=== PATIENT | male | born 1950 | race Caucasian/White ===

== ENCOUNTER 2017-01-24 13:50 | Inpatient (IN) ==
[2017-01-24] MEDS ORDERED: ASPIRIN 325 MG TABLET PO STA (14:12)
[2017-01-24] MEDS ORDERED: ASPIRIN 325 MG TABLET ONE (14:25)
[2017-01-24 14:52] LABS: INR 3.3
[2017-01-24 14:53] LABS: PT Patient Result 33.8 SECS; Partial Thromboplastin Time 41.5 SECS (0-40)
[2017-01-24 14:56] LABS: Calcium 8.4 MG/DL (8.5-10.1); Osmolality,Calculated 284.3 MOS/KG (273-304); Potassium 4.1 MMOL/L (3.5-5.1)
[2017-01-24 15:00] LABS: Troponin I Only 3.73 NG/ML (0.00-0.045)
[2017-01-24] MEDS ORDERED: ENOXAPARIN 120 MG/0.8 ML SYRINGE SUBCUT ONE (15:33)
[2017-01-24] MEDS ORDERED: ENOXAPARIN 120 MG/0.8 ML SYRINGE SUBCUT STA (15:44)
[2017-01-24] MEDS ORDERED: PHYTONADIONE 5 MG TABLET PO ONE (16:13)
[2017-01-24] MEDS ORDERED: ZALEPLON 5 MG CAPSULE PO PRN (16:15)
[2017-01-24] MEDS ORDERED: MAGNESIUM SULF RIDER 2 GM in PREMIX 1 EACH IV PRN (16:15)
[2017-01-24] MEDS ORDERED: MAGNESIUM SULF RIDER 4 GM in PREMIX 1 EACH IV PRN (16:15)
[2017-01-24] MEDS ORDERED: ONDANSETRON 4 MG/2 ML VIAL IV PRN (16:15)
[2017-01-24] MEDS ORDERED: INFLUENZA VIRUS VACCINE 0.5 ML SYRINGE IM ONE (16:22)
[2017-01-24] MEDS: SODIUM CHLORIDE 0.9% 1,000 ML IV SCH (17:04)
[2017-01-24] MEDS: PANTOPRAZOLE 40 MG TABLET PO SCH (17:04)
[2017-01-24] MEDS: METOPROLOL SUCCINATE XL 50 MG TABLET PO SCH (20:55)
[2017-01-25] MEDS: SODIUM CHLORIDE 0.9% 1,000 ML IV SCH ×2 (01:31→09:14)
[2017-01-25 05:07] LABS: INR 2.2
[2017-01-25 05:23] LABS: PT Patient Result 22.7 SECS
[2017-01-25 05:38] LABS: Calcium 8.3 MG/DL (8.5-10.1); Free T4 (Free Thyroxine) 1.21 NG/DL (0.76-1.46); Osmolality,Calculated 283.1 MOS/KG (273-304); Potassium 4.3 MMOL/L (3.5-5.1); Thyroid Stimulating Hormone 0.77 uIU/ml (0.358-3.74)
[2017-01-25 05:51] LABS: Risk Ratio 3.73; VLDL CHOLESTEROL 18.6 MG/DL
[2017-01-25] MEDS ORDERED: POTASSIUM CHLORIDE RIDER 10 MEQ in PREMIX 1 EACH IV PRN (08:39)
[2017-01-25] MEDS ORDERED: diphenhydrAMINE CAP 25 MG CAPSULE PO ONE (08:39)
[2017-01-25] MEDS ORDERED: DIAZEPAM 5 MG TABLET PO ONE (08:39)
[2017-01-25] MEDS ORDERED: MAGNESIUM SULF RIDER 2 GM in PREMIX 1 EACH IV PRN (08:39)
[2017-01-25] MEDS: PANTOPRAZOLE 40 MG TABLET PO SCH (09:15)
[2017-01-25] MEDS: METOPROLOL SUCCINATE XL 50 MG TABLET PO SCH (09:15)
[2017-01-25] MEDS ORDERED: HEPARIN/NACL 0.9% 2 UNITS/ML 2,000 ML IV ONE (10:14)
[2017-01-25] MEDS ORDERED: LIDOCAINE 1% 20 ML VIAL ONE (10:14)
[2017-01-25] MEDS ORDERED: HYDROmorphone 2 MG/1 ML VIAL ONE (11:41)
[2017-01-25] MEDS ORDERED: MIDAZOLAM 2 MG/2 ML VIAL ONE (11:41)
[2017-01-25] MEDS ORDERED: VERAPAMIL 5 MG/2 ML VIAL ONE (11:44)
[2017-01-25] MEDS ORDERED: NITROGLYCERIN DRIP 50 MG/250 ML BOTTLE IV ONE (11:44)
[2017-01-25] MEDS ORDERED: SODIUM CHLORIDE 0.9% 1,000 ML IV SCH (12:30)
[2017-01-25] MEDS ORDERED: WARFARIN 5 MG TABLET PO SCH (18:00)
[2017-01-25 18:03] VITALS: BP 135/86
[2017-01-25] MEDS ORDERED: SERTRALINE 25 MG TABLET PO SCH (21:00)
[2017-01-26] MEDS ORDERED: ASPIRIN EC 81 MG TABLET PO SCH (09:00)
[2017-01-26] MEDS ORDERED: CHOLECALCIFEROL 1,000 UNIT TABLET PO SCH (09:00)
[2017-01-26] MEDS ORDERED: MAGNESIUM CHLORIDE 64 MG TABLET PO SCH (09:00)
[2017-01-26] MEDS ORDERED: ASCORBIC ACID 500 MG TABLET PO SCH (09:00)
[2017-01-26] MEDS ORDERED: WARFARIN 7.5 MG TABLET PO SCH (18:00)
== END 2017-01-25 18:27 | disposition home or self-care (01) | DRG 281 ==
LOC: EDUNIT# → EDBD → N.ED 13:50 → N.EDINP 15:07 → N.TELEN 16:15
PROVIDERS: ADMIT Internal Medicine Cardiovascular Disease; ATTEND Internal Medicine Cardiovascular Disease
PROC: CLCCHCL (ICD-10-PCS; 2017-01-25 12:15)